=== PATIENT | male | born 1945 | race Caucasian/White ===

== ENCOUNTER 2018-10-23 08:12 | Outpatient (RCR) | payer OTHER ==
[2018-10-16 09:19] VITALS: BMI 28.4
[2018-11-21 11:07] VITALS: BP 146/68
== END 2018-11-22 23:59 ==
LOC: CAR.REHAB 08:12
PROVIDERS: ATTEND Internal Medicine Cardiovascular Disease
DX: I25.10 Atherosclerotic heart disease of native coronary artery without angina pectoris (principal)
CPT/HCPCS: 93798